=== PATIENT | female | born 1975 | race Caucasian/White ===

== ENCOUNTER 2017-03-01 12:10 | Emergency (ER) | payer SELFPAY ==
[~2017-03-01 12:10] MED LIST: ACYCLOVIR200 MG PO; ALBUTEROL2.5 MG/3 M IN; CEPHALEXIN500 MG PO; METRONIDAZOLE500 MG PO; OXYCODONE/ACETA1 TA1 PO
--- NOTE | 2017-03-01 13:03 | ED NURSING NOTES ---
Clinical Report - Nurses [facility] [address] [place] [address] 03/01/2017 12:13 Patient: NEMO ROSALES TRIAGE Triage time 12:Mar 01 2017. Acuity: LEVEL 5. Chief Complaint: LEFT UPPER TOOTHACHE and CHIPPED TOOTH. 12:18 03/01/17. 12:18 03/01/17. Alert. No acute distress. SEPSIS SCREEN: Sepsis Screen. Negative (no infection suspected/documented). --12:21 Russell Hui R.N. 12:16 03/01/17. BP: 127/87. HR: 68. RR: 16. O2 saturation: 99% on room air. Temp: 98.9 F (oral). Pain level now: 8/10. --12:21 Russell Hui R.N. Weight: 65.7 kg stated. Height/Length: 68 inches Per Patient. BMI: 22. --12:17 Russell Hui R.N. Medications None. --12:21 Russell Hui R.N. Medication/allergy information source: the patient. --12:21 Russell Hui R.N. Allergies Naproxen.(itching) --12:19 Russell Hui R.N. Vicodin.(itching) --12:20 Russell Hui R.N. History Arrived by private vehicle. Historian: patient. Unaccompanied. Primary physician (NONE). 12:18 03/01/17. ( 3 days ago). She has no dental appointment scheduled. 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 PAST MEDICAL HX: Immunizations: up-to-date. Last normal menstrual period- 1 week ago. SOCIAL HX: Current every day light tobacco smoker (cigarette)- less than 1/2 a pack per day. No alcohol use or drug use. No infectious disease exposure. ABUSE ASSESSMENT: No report of abuse. FALL RISK ASSESSMENT: Fall risk assessment completed. No fall risk identified. NUTRITIONAL RISK ASSESSMENT: The nutritional risk assessment revealed no deficiencies. FUNCTIONAL ASSESSMENT: Functional assessment: no impairments noted. LEARNING NEEDS ASSESSMENT: The learning needs assessment revealed no barriers. SKIN INTEGRITY ASSESSMENT: Skin integrity risk assessment completed. No skin integrity risk identified. --12:21 Russell Hui R.N. PROBLEMS: Pneumonia. Headache. Sinusitis. Tension-Type Headache. LNMP - Last Normal Menstrual Period. Lumbar Strain. --12:19 Russell Hui R.N. Lump in throat. --12:21 uRssell Hui R.N. ADDITIONAL SURGERIES: Tonsillectomy. Tubal Ligation. --12:19 Russell Hui R.N. Assessment 12:18 03/01/17. --12:21 Russell Hui R.N. Interventions 12:18 03/01/17. 12:18 03/01/17. ID and allergy band on patient. --12:21 Russell Hui R.N. PHYSICAL ASSESSMENT 12:03/01/17. Ambulatory to room. GENERAL / NEURO / PSYCH: Alert. Oriented X 4. Appears in no acute distress. RESPIRATORY: Respirations not labored. CVS: Capillary refill less than 2 seconds. SKIN: Skin is warm and dry. --12:20 Russell Hui R.N. NURSING PROGRESS NOTES 12:20 03/01/17. Two patient identifiers checked. Call light placed in reach. Side rails up x 2. Bed placed in lowest position. Brakes of bed on. --12:20 Russell Hui R.N. 12:20 03/01/17. Patient ready for evaluation- chart flagged and notification provided. --12:20 Russell Hui R.N. DISPOSITION / DISCHARGE 13:16 03/01/17. Condition at departure: improved. The goals identified in the patient's plan of care were met. No learning barriers present. Discharge instructions provided and reviewed with the patient. Reviewed warnings. Reviewed medication(s). Treatments reviewed. Patient verbalized understanding. Written instructions provided in Niuean. The patient was discharged by the physician leasing assistant. She was discharged home and accompanied by family. She left the Emergency Department ambulatory and via private vehicle. Family member driving. FALL RISK ASSESSMENT: Fall risk assessment completed. No fall risk identified. --13:16 Russell Hui R.N. 13:15 03/01/17. BP: 145/77. HR: 80. RR: 14. O2 saturation: 99% on room air. Temp: 98.1 F (oral). --13:16 Russell Hui R.N. 13:16 03/01/17. Departure time: 13:Mar 01 2017. --13:16 Russell Hui R.N. Locked/Released at 03/01/2017 13:17 by Russell Hui R.N.
--- NOTE | 2017-03-01 13:03 | ED CLINICAL REPORT ---
Clinical Report - Physicians/Mid Levels [facility] [address] [place] [address] 03/01/2017 12:13 Patient: NEMO ROSALES Time Seen: 1309Mar 01 2017. Arrived- By private vehicle. Historian- patient. HISTORY OF PRESENT ILLNESS Chief Complaint: DENTAL PAIN. This started just prior to arrival and is still present. Pain described as moderate. The patient has had toothache. (patient reports per her tooth became missing yesterday, she was playing with her temperature noted some changes to her tooth. She reports today she has had swelling to the face and the gumline. Some pain. Denies any worsening of pain with eating, cold or hot foods or any went. Patient has any facial swelling. Denies a cough. Denies any recent antibiotic use.). REVIEW OF SYSTEMS All systems otherwise negative, except as recorded above. PAST HISTORY Problems: Lump in throat. Headache. Sinusitis. Tension-Type Headache. LNMP - Last Normal Menstrual Period. Lumbar Strain. Additional Surgeries: Tonsillectomy. Tubal Ligation. Medications: None. Allergies: Naproxen.(itching) Vicodin.(itching). SOCIAL HISTORY Current every day heavy tobacco smoker- less than 1 pack per day. No alcohol use or drug use. ADDITIONAL NOTES The nursing notes have been reviewed. PHYSICAL EXAM Vital Signs: 03/01/2017 12:16 BP: 127/87. HR: 68. RR: 16. O2 saturation: 99%. Temp: 98.9 F. Pain level now: 8/10. Appearance: Alert. No acute distress. Head: Normal external inspection. ENT: Dental decay (berna molar on left upper). Dental tenderness. Nose normal. Pharynx normal. Lips normal. Uvula midline. (gumline erythema surrounding the left upper premolar with tenderness, no palpable mass for drainage). No trismus. Neck: Trachea midline. No adenopathy. No thyromegaly. CVS: Normal heart rate and rhythm. Heart sounds normal. Respiratory: No respiratory distress. Breath sounds normal. Skin: No rash. Neuro: Oriented X 3. PROGRESS AND PROCEDURES Course of Care: Patient with no signs of external facial swelling. Some gumline erythema with no indication for incision and drainage, as abscess is not present. Patient to use warm packs to the area as needed, ice packs external sign, to follow with the dentist. uvula is midline, no signs of Odilon's angina. 03/01/2017 13:15 BP: 145/77. HR: 80. RR: 14. O2 saturation: 99%. Temp: 98.1 F. Patient is stable. Symptoms better. Patient/family counseled. Disposition: Discharged. CLINICAL IMPRESSION Moderate dental pain. Hypertension. INSTRUCTIONS Drink plenty of fluids. (salt water rinses warm soaks/ heat packs to face). Prescription Medications: Amoxicillin 500 mg tablets: take 1 orally every 8 hours for 10 days. No refills. Ultram 50 mg: take 1 orally every 6 hours for 3 days, as needed for pain. Dispense ten (10). No refills. Substitution is permissible. Follow-up: Follow up with a specialist. (Electronically signed by Akosua Cruz P.A.-C 03/01/2017 13:39)
--- NOTE | 2017-03-01 13:03 | ED CLINICAL REPORT ---
Clinical Report - Physicians/Mid Levels [facility] [address] [place] [address] 03/01/2017 12:13 Patient: NEMO ROSALES Time Seen: 1309Mar 01 2017. Arrived- By private vehicle. Historian- patient. HISTORY OF PRESENT ILLNESS Chief Complaint: DENTAL PAIN. This started just prior to arrival and is still present. Pain described as moderate. The patient has had toothache. (patient reports per her tooth became missing yesterday, she was playing with her temperature noted some changes to her tooth. She reports today she has had swelling to the face and the gumline. Some pain. Denies any worsening of pain with eating, cold or hot foods or any went. Patient has any facial swelling. Denies a cough. Denies any recent antibiotic use.). REVIEW OF SYSTEMS All systems otherwise negative, except as recorded above. PAST HISTORY Problems: Lump in throat. Headache. Sinusitis. Tension-Type Headache. LNMP - Last Normal Menstrual Period. Lumbar Strain. Additional Surgeries: Tonsillectomy. Tubal Ligation. Medications: None. Allergies: Naproxen.(itching) Vicodin.(itching). SOCIAL HISTORY Current every day heavy tobacco smoker- less than 1 pack per day. No alcohol use or drug use. ADDITIONAL NOTES The nursing notes have been reviewed. PHYSICAL EXAM Vital Signs: 03/01/2017 12:16 BP: 127/87. HR: 68. RR: 16. O2 saturation: 99%. Temp: 98.9 F. Pain level now: 8/10. Appearance: Alert. No acute distress. Head: Normal external inspection. ENT: Dental decay (berna molar on left upper). Dental tenderness. Nose normal. Pharynx normal. Lips normal. Uvula midline. (gumline erythema surrounding the left upper premolar with tenderness, no palpable mass for drainage). No trismus. Neck: Trachea midline. No adenopathy. No thyromegaly. CVS: Normal heart rate and rhythm. Heart sounds normal. Respiratory: No respiratory distress. Breath sounds normal. Skin: No rash. Neuro: Oriented X 3. PROGRESS AND PROCEDURES Course of Care: Patient with no signs of external facial swelling. Some gumline erythema with no indication for incision and drainage, as abscess is not present. Patient to use warm packs to the area as needed, ice packs external sign, to follow with the dentist. uvula is midline, no signs of Odilon's angina. 03/01/2017 13:15 BP: 145/77. HR: 80. RR: 14. O2 saturation: 99%. Temp: 98.1 F. Patient is stable. Symptoms better. Patient/family counseled. Disposition: Discharged. CLINICAL IMPRESSION Moderate dental pain. Hypertension. INSTRUCTIONS Drink plenty of fluids. (salt water rinses warm soaks/ heat packs to face). Prescription Medications: Amoxicillin 500 mg tablets: take 1 orally every 8 hours for 10 days. No refills. Ultram 50 mg: take 1 orally every 6 hours for 3 days, as needed for pain. Dispense ten (10). No refills. Substitution is permissible. Follow-up: Follow up with a specialist. (Electronically signed by Akosua Cruz P.A.-C 03/01/2017 13:39)
--- NOTE | 2017-03-01 13:03 | ED NURSING NOTES ---
Clinical Report - Nurses [facility] [address] [place] [address] 03/01/2017 12:13 Patient: NEMO ROSALES TRIAGE Triage time 12:Mar 01 2017. Acuity: LEVEL 5. Chief Complaint: LEFT UPPER TOOTHACHE and CHIPPED TOOTH. 12:18 03/01/17. 12:18 03/01/17. Alert. No acute distress. SEPSIS SCREEN: Sepsis Screen. Negative (no infection suspected/documented). --12:21 Russell Hui R.N. 12:16 03/01/17. BP: 127/87. HR: 68. RR: 16. O2 saturation: 99% on room air. Temp: 98.9 F (oral). Pain level now: 8/10. --12:21 Russell Hui R.N. Weight: 65.7 kg stated. Height/Length: 68 inches Per Patient. BMI: 22. --12:17 Russell Hui R.N. Medications None. --12:21 Russell Hui R.N. Medication/allergy information source: the patient. --12:21 Russell Hui R.N. Allergies Naproxen.(itching) --12:19 Russell Hui R.N. Vicodin.(itching) --12:20 Russell Hui R.N. History Arrived by private vehicle. Historian: patient. Unaccompanied. Primary physician (NONE). 12:18 03/01/17. ( 3 days ago). She has no dental appointment scheduled. 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 PAST MEDICAL HX: Immunizations: up-to-date. Last normal menstrual period- 1 week ago. SOCIAL HX: Current every day light tobacco smoker (cigarette)- less than 1/2 a pack per day. No alcohol use or drug use. No infectious disease exposure. ABUSE ASSESSMENT: No report of abuse. FALL RISK ASSESSMENT: Fall risk assessment completed. No fall risk identified. NUTRITIONAL RISK ASSESSMENT: The nutritional risk assessment revealed no deficiencies. FUNCTIONAL ASSESSMENT: Functional assessment: no impairments noted. LEARNING NEEDS ASSESSMENT: The learning needs assessment revealed no barriers. SKIN INTEGRITY ASSESSMENT: Skin integrity risk assessment completed. No skin integrity risk identified. --12:21 Russell Hui R.N. PROBLEMS: Pneumonia. Headache. Sinusitis. Tension-Type Headache. LNMP - Last Normal Menstrual Period. Lumbar Strain. --12:19 Russell Hui R.N. Lump in throat. --12:21 Russell Hui R.N. ADDITIONAL SURGERIES: Tonsillectomy. Tubal Ligation. --12:19 Russell Hui R.N. Assessment 12:18 03/01/17. --12:21 Russell Hui R.N. Interventions 12:18 03/01/17. 12:18 03/01/17. ID and allergy band on patient. --12:21 Russell Hui R.N. PHYSICAL ASSESSMENT 12:03/01/17. Ambulatory to room. GENERAL / NEURO / PSYCH: Alert. Oriented X 4. Appears in no acute distress. RESPIRATORY: Respirations not labored. CVS: Capillary refill less than 2 seconds. SKIN: Skin is warm and dry. --12:20 Russell Hui R.N. NURSING PROGRESS NOTES 12:20 03/01/17. Two patient identifiers checked. Call light placed in reach. Side rails up x 2. Bed placed in lowest position. Brakes of bed on. --12:20 Russell Hui R.N. 12:20 03/01/17. Patient ready for evaluation- chart flagged and notification provided. --12:20 Russell Hui R.N. DISPOSITION / DISCHARGE 13:16 03/01/17. Condition at departure: improved. The goals identified in the patient's plan of care were met. No learning barriers present. Discharge instructions provided and reviewed with the patient. Reviewed warnings. Reviewed medication(s). Treatments reviewed. Patient verbalized understanding. Written instructions provided in Greenlandic. The patient was discharged by the physician farm assistant. She was discharged home and accompanied by family. She left the Emergency Department ambulatory and via private vehicle. Family member driving. FALL RISK ASSESSMENT: Fall risk assessment completed. No fall risk identified. --13:16 Russell Hui R.N. 13:15 03/01/17. BP: 145/77. HR: 80. RR: 14. O2 saturation: 99% on room air. Temp: 98.1 F (oral). --13:16 Russell Hui R.N. 13:16 03/01/17. Departure time: 13:Mar 01 2017. --13:16 Russell Hui R.N. Locked/Released at 03/01/2017 13:17 by Russell Hui R.N.
--- NOTE | 2017-03-01 13:39 | ED DISCHARGE INSTRUCTIONS ---
Patient: NEMO ROSALES General Instructions [facility] VisitID: [id number] [place] [address] 41y, F Registration Date/Time: 03/01/2017 Moderate dental pain. Hypertension. INSTRUCTIONS Drink plenty of fluids. (salt water rinses warm soaks/ heat packs to face). Prescription Medications: Amoxicillin 500 mg tablets: take 1 orally every 8 hours for 10 days. No refills. Ultram 50 mg: take 1 orally every 6 hours for 3 days, as needed for pain. Dispense ten (10). No refills. Substitution is permissible. Follow-up: Follow up with a specialist. ADDITIONAL INFORMATION Dental Pain A crack or cavity in the tooth, which exposes the sensitive inner area of the tooth can cause tooth pain. An infection in the gum or the root of the tooth can cause pain and swelling. The pain is often made worse by drinking hot or cold fluids, or biting on hard foods. Pain may spread from the tooth to the ear or jaw on the same side. Home Care: Avoid hot and cold foods and liquids since your tooth may be sensitive to temperature changes. If your tooth is chipped or cracked, or if there is a large open cavity, apply OIL OF CLOVES (available oirw-sfb-svqakgh in drug stores) directly to the tooth to reduce pain. Some pharmacies carry an icph-jlu-jmdtboc "toothache kit." This contains a paste, which can be applied over the exposed tooth to decrease sensitivity. A cold pack on your jaw over the sore area may help reduce pain. You may use acetaminophen (Tylenol) or ibuprofen (Motrin, Advil) to control pain, unless another medicine was prescribed. [ NOTE: If you have chronic liver or kidney disease or ever had a stomach ulcer or GI bleeding, talk with your doctor before using these medicines.] If you have signs of an infection, an antibiotic will be given. Take it as directed. Follow-Up as directed with a dentist. Your pain may go away with the treatment given. However, only a dentist can fully evaluate and treat the cause and prevent the pain from coming back again. TOOTHACHE IS A SIGN OF DISEASE IN YOUR TOOTH AND SHOULD BE EXAMINED AND TREATED BY A DENTIST. Get Prompt Medical Attention if any of the following occur: Your face becomes swollen or red Pain worsens or spreads to the neck Fever over 100.4 F (38.0 C) Unusual drowsiness; headache or stiff neck; weakness or fainting Pus drains from the tooth Difficulty swallowing or breathing Amoxicillin Trihydrate Oral tablet What is this medicine? AMOXICILLIN (a mox i CAMRON in) is a penicillin antibiotic. It is used to treat certain kinds of bacterial infections. It will not work for colds, flu, or other viral infections. How should I use this medicine? Take this medicine by mouth with a glass of water. Follow the directions on your prescription label. You may take this medicine with food or on an empty stomach. Take your medicine at regular intervals. Do not take your medicine more often than directed. Take all of your medicine as directed even if you think your are better. Do not skip doses or stop your medicine early. Talk to your potato peeling machine operator regarding the use of this medicine in children. While this drug may be prescribed for selected conditions, precautions do apply. What side effects may I notice from receiving this medicine? Side effects that you should report to your doctor or health pet caretaker as soon as possible: allergic reactions like skin rash, itching or hives, swelling of the face, lips, or tongue breathing problems dark urine redness, blistering, peeling or loosening of the skin, including inside the mouth seizures severe or watery diarrhea trouble passing urine or change in the amount of urine unusual bleeding or bruising unusually weak or tired yellowing of the eyes or skin Side effects that usually do not require medical attention (report to your doctor or health pet caretaker if they continue or are bothersome): dizziness headache stomach upset trouble sleeping What may interact with this medicine? amiloride control pills chloramphenicol macrolides probenecid sulfonamides tetracyclines What if I miss a dose? If you miss a dose, take it as soon as you can. If it is almost time for your next dose, take only that dose. Do not take double or extra doses. Where should I keep my medicine? Keep out of the reach of children. Store between 68 and 77 degrees F (20 and 25 degrees C). Keep bottle closed tightly. Throw away any unused medicine after the expiration date. What should I tell my health care provider before I take this medicine? They need to know if you have any of these conditions: asthma kidney disease an unusual or allergic reaction to amoxicillin, other penicillins, cephalosporin antibiotics, other medicines, foods, dyes, or preservatives or trying to get breast-feeding What should I watch for while using this medicine? Tell your doctor or health pet caretaker if your symptoms do not improve in 2 or 3 days. Take all of the doses of your medicine as directed. Do not skip doses or stop your medicine early. If you are diabetic, you may get a false positive result for sugar in your urine with certain brands of urine tests. Check with your doctor. Do not treat diarrhea with jlqs-rie-hrmcrpt products. Contact your doctor if you have diarrhea that lasts more than 2 days or if the diarrhea is severe and watery. You have been given the following additional information: Dental Pain Amoxicillin Trihydrate Oral tablet (Electronically signed by Akosua Cruz P.A.-C 03/01/2017 13:39)
--- NOTE | 2017-03-01 13:39 | ED MAR SUMMARY ---
..... Medication Administration Record [facility] [address] [place], [place] [id number] Patient: NEMO ROSALES Visit ID: [id number] 41y, F Weight: 65.7 kg Height/Length: 68 in BMI: 22 ALLERGIES: Naproxen, Vicodin
--- NOTE | 2017-03-01 13:39 | ED MED RECONCILIATION SUMMARY ---
Patient: NEMO ROSALES Medication Reconciliation Report [facility] VisitID: [id number] [place] [address] 41y, F Registration Date/Time: 03/01/2017 Weight: 65.7 kg Height/Length: 68 in. BMI: 22.0 ALLERGIES: Naproxen, Vicodin The patient's Home Medications are listed below: NONE. The source(s) of the original Home Medication information: patient The following Medications were given to the patient in the Emergency Department: None. The following Medications were prescribed to the patient: Amoxicillin 500 mg tablets: take 1 orally every 8 hours for 10 days. No refills. -- Akosua Cruz, P.A.-Rocael Ultram 50 mg: take 1 orally every 6 hours for 3 days, as needed for pain. Dispense ten (10). No refills. Substitution is permissible. -- Akosua Cruz, P.A.-C
--- NOTE | 2017-03-01 13:39 | ED MAR SUMMARY ---
..... Medication Administration Record [facility] [address] [place] [place], [place] [id number] Patient: NEMO ROSALES Visit ID: [id number] 41y, F Weight: 65.7 kg Height/Length: 68 in BMI: 22 ALLERGIES: Naproxen, Vicodin
--- NOTE | 2017-03-01 13:39 | ED MED RECONCILIATION SUMMARY ---
Patient: NEMO ROSALES Medication Reconciliation Report [facility] VisitID: [id number] [place] [address] 41y, F Registration Date/Time: 03/01/2017 Weight: 65.7 kg Height/Length: 68 in. BMI: 22.0 ALLERGIES: Naproxen, Vicodin The patient's Home Medications are listed below: NONE. The source(s) of the original Home Medication information: patient The following Medications were given to the patient in the Emergency Department: None. The following Medications were prescribed to the patient: Amoxicillin 500 mg tablets: take 1 orally every 8 hours for 10 days. No refills. -- Akosua Cruz, P.A.-Rocael Ultram 50 mg: take 1 orally every 6 hours for 3 days, as needed for pain. Dispense ten (10). No refills. Substitution is permissible. -- Akosua Cruz, P.A.-C
--- NOTE | 2017-03-01 13:39 | ED DISCHARGE INSTRUCTIONS ---
Patient: NEMO ROSALES General Instructions [facility] VisitID: [id number] [place] [address] 41y, F Registration Date/Time: 03/01/2017 Moderate dental pain. Hypertension. INSTRUCTIONS Drink plenty of fluids. (salt water rinses warm soaks/ heat packs to face). Prescription Medications: Amoxicillin 500 mg tablets: take 1 orally every 8 hours for 10 days. No refills. Ultram 50 mg: take 1 orally every 6 hours for 3 days, as needed for pain. Dispense ten (10). No refills. Substitution is permissible. Follow-up: Follow up with a specialist. ADDITIONAL INFORMATION Dental Pain A crack or cavity in the tooth, which exposes the sensitive inner area of the tooth can cause tooth pain. An infection in the gum or the root of the tooth can cause pain and swelling. The pain is often made worse by drinking hot or cold fluids, or biting on hard foods. Pain may spread from the tooth to the ear or jaw on the same side. Home Care: Avoid hot and cold foods and liquids since your tooth may be sensitive to temperature changes. If your tooth is chipped or cracked, or if there is a large open cavity, apply OIL OF CLOVES (available gnuh-slg-tnsexna in drug stores) directly to the tooth to reduce pain. Some pharmacies carry an ewka-gry-tsthppu "toothache kit." This contains a paste, which can be applied over the exposed tooth to decrease sensitivity. A cold pack on your jaw over the sore area may help reduce pain. You may use acetaminophen (Tylenol) or ibuprofen (Motrin, Advil) to control pain, unless another medicine was prescribed. [ NOTE: If you have chronic liver or kidney disease or ever had a stomach ulcer or GI bleeding, talk with your doctor before using these medicines.] If you have signs of an infection, an antibiotic will be given. Take it as directed. Follow-Up as directed with a dentist. Your pain may go away with the treatment given. However, only a dentist can fully evaluate and treat the cause and prevent the pain from coming back again. TOOTHACHE IS A SIGN OF DISEASE IN YOUR TOOTH AND SHOULD BE EXAMINED AND TREATED BY A DENTIST. Get Prompt Medical Attention if any of the following occur: Your face becomes swollen or red Pain worsens or spreads to the neck Fever over 100.4 F (38.0 C) Unusual drowsiness; headache or stiff neck; weakness or fainting Pus drains from the tooth Difficulty swallowing or breathing Amoxicillin Trihydrate Oral tablet What is this medicine? AMOXICILLIN (a mox i [place] in) is a penicillin antibiotic. It is used to treat certain kinds of bacterial infections. It will not work for colds, flu, or other viral infections. How should I use this medicine? Take this medicine by mouth with a glass of water. Follow the directions on your prescription label. You may take this medicine with food or on an empty stomach. Take your medicine at regular intervals. Do not take your medicine more often than directed. Take all of your medicine as directed even if you think your are better. Do not skip doses or stop your medicine early. Talk to your adoption counselor regarding the use of this medicine in children. While this drug may be prescribed for selected conditions, precautions do apply. What side effects may I notice from receiving this medicine? Side effects that you should report to your doctor or health inspector health care facilities as soon as possible: allergic reactions like skin rash, itching or hives, swelling of the face, lips, or tongue breathing problems dark urine redness, blistering, peeling or loosening of the skin, including inside the mouth seizures severe or watery diarrhea trouble passing urine or change in the amount of urine unusual bleeding or bruising unusually weak or tired yellowing of the eyes or skin Side effects that usually do not require medical attention (report to your doctor or health inspector health care facilities if they continue or are bothersome): dizziness headache stomach upset trouble sleeping What may interact with this medicine? amiloride control pills chloramphenicol macrolides probenecid sulfonamides tetracyclines What if I miss a dose? If you miss a dose, take it as soon as you can. If it is almost time for your next dose, take only that dose. Do not take double or extra doses. Where should I keep my medicine? Keep out of the reach of children. Store between 68 and 77 degrees F (20 and 25 degrees C). Keep bottle closed tightly. Throw away any unused medicine after the expiration date. What should I tell my health care provider before I take this medicine? They need to know if you have any of these conditions: asthma kidney disease an unusual or allergic reaction to amoxicillin, other penicillins, cephalosporin antibiotics, other medicines, foods, dyes, or preservatives or trying to get breast-feeding What should I watch for while using this medicine? Tell your doctor or health inspector health care facilities if your symptoms do not improve in 2 or 3 days. Take all of the doses of your medicine as directed. Do not skip doses or stop your medicine early. If you are diabetic, you may get a false positive result for sugar in your urine with certain brands of urine tests. Check with your doctor. Do not treat diarrhea with zani-zyj-nrzpnus products. Contact your doctor if you have diarrhea that lasts more than 2 days or if the diarrhea is severe and watery. You have been given the following additional information: Dental Pain Amoxicillin Trihydrate Oral tablet (Electronically signed by Akosua Cruz P.A.-C 03/01/2017 13:39)
== END 2017-03-01 13:16 | disposition home or self-care (01) ==
LOC: ED SRH 12:10
DX: K08.89 Other specified disorders of teeth and supporting structures (principal); I10 Essential (primary) hypertension; Z72.0 Tobacco use; Z88.5 Allergy status to narcotic agent; Z79.1 Long term (current) use of non-steroidal anti-inflammatories (NSAID)